=== PATIENT | female | born 1990 | race African-American/Black ===

== ENCOUNTER 2020-03-12 15:21 | Emergency (ER) | payer MEDICAID ==
[~2020-03-12] VITALS: Ht 160 cm; Wt 77.5 kg
[2020-03-12 15:55] VITALS: BP 106/70
[2020-03-12] MEDS ORDERED: KETOROLAC 30MG/ML VIAL IM ONE (18:00)
[2020-03-12 19:09] LABS: CLARITY URINE CLEAR (CLEAR); COLOR URINE DARK YELLOW (YELLOW); KETONES URINE 4+ (NEGATIVE); LEUKOCYTE ESTERASE URINE 1+ (NEGATIVE); NITRITE URINE NEGATIVE (NEGATIVE); OCCULT BLOOD URINE 3+ (NEGATIVE); PH URINE 5.5 (4.5-8.0); PROTEIN URINE 2+ (NEGATIVE); SPECIFIC GRAVITY URINE 1.031 (1.005-1.030)
[2020-03-12 19:30] LABS: *AMPHETAMINES SCREEN URINE NEGATIVE (NEGATIVE); *BARBITURATES SCREEN URINE NEGATIVE (NEGATIVE); *BENZODIAZEPINES SCREEN URINE NEGATIVE (NEGATIVE); *COCAINE SCREEN URINE NEGATIVE (NEGATIVE)
[2020-03-12 19:31] LABS: CANNABINOID URINE SCREEN NEGATIVE (NEGATIVE); METHADONE URINE SCREEN NEGATIVE (NEGATIVE); OPIATES URINE SCREEN NEGATIVE (NEGATIVE); PHENCYCLIDINE URINE SCREEN NEGATIVE (NEGATIVE)
== END 2020-03-12 19:27 | disposition home or self-care (01) ==
LOC: ER 15:21
DX: M79.18 Myalgia, other site (principal); F41.9 Anxiety disorder, unspecified; J45.909 Unspecified asthma, uncomplicated; F32.9 Major depressive disorder, single episode, unspecified
CPT/HCPCS: 80305; 81003; 81025; 96372; 99283; J1885